=== PATIENT | female | born 1930 | race Caucasian/White ===

== ENCOUNTER → 2017-01-09 | Outpatient (CLI) | payer MEDICARE ==
[~2017-01-09] MED LIST: ALEVE 220MG220 MG PO; AMBIEN 10MG10 MG PO; AMLODIPINE5 MG PO; APAP/CODEINE PO; ASPIRIN E.C. 8181 MG PO; BENADRYL25 MG PO; CALCIUM + D 6001 TA1 PO; CALCIUM CITRATE1 TA5 PO; CATAFLAM50 MG PO; CENTRUM SILVER1 TA1 PO; CIPRO 500MG TA500 MG PO; CLARITIN 1010 MG/TAB PO; COQ(10)1010 MG PO; CORDARONE200 MG/TAB PO; COREG 25MG25 MG/TAB PO; CYCLOBENZAPRINE10 MG PO; DICLOFENAC50 MG PO; DIFLUCAN50 MG PO; FERROUS SU325 MG/TAB PO; FISH OIL SUPER1 SGL PO; FLAXSEED OIL1 CAP PO; FLONASEALLERGY NS; GLUCOSAMINE & C1 CA1 PO; IRON325 M2 PO; K-DUR 10 MEQ T10 MEQ PO; KLOR-CON 1010 MEQ PO; LASIX; LASIX 20MG TABL20 MG PO; LASIX 40MG TABL40 MG PO; LASIX40 MG PO; LISINOPRIL20 MG PO; LISINOPRIL40 MG PO; LOPRESSOR 550 MG/TAB PO; LOPRESSOR50 MG PO; MUCINEX 60600 MG/TA1 PO; MULTI VITAMINS1 TAB PO; NATURAL E400 IU PO; NEURONTIN100 MG/CAP PO; NORVASC 10MG10 MG PO; NORVASC 5MG5 MG/TAB PO; OMEGA-3 1000 MG1 CAP PO; OMNICEF 300MG300 MG PO; OSCAL 500MG/VI500 MG PO; POTASSIUM CL 220 MEQ PO; POTASSIUM20 MEQ PO; PREDNISONE10 MG PO; PREDNISONE20 MG PO; PRINIVIL20 MG PO; PROAIR HFA0.09 MG/AC IH; PROCARDIA XL90 MG PO; PYRIDIUM 100MG100 MG PO; RESTORIL 1515 MG/CAP PO; RT ADVAIR HFA 1112 G IH; ST. JOSEPH81 M2 PO; SYNTHROID0.05 MG/TA PO; TOPROL XL 50MG50 MG PO; TYLENOL 500MG500 MG PO; TYLENOL ARTHRI650 M1 PO; TYLENOL EXTRA500 M1 PO; ULTRAM 50MG TAB50 MG PO; VITAMIN B COMPL1 T16 PO; VITAMIN B121000 MCG PO; VITAMIN C500 MG PO; VITAMIN D32000 I1 PO; VITAMIN D3400 I1 PO; VITAMIN E100 I3 PO; XARELTO15 MG PO; ZEBETA10 MG PO; ZESTRIL 20MG TA20 MG PO; ZITHROMAX 250M250 MG PO; ZITHROMAX Z PA250 MG PO; ZOCOR 10MG10 MG PO; ZOCOR 20MG20 MG PO; ZOLPIDEM5 MG PO
== END ==
LOC: COL.RAD 09:22
DX: M48.54XA Collapsed vertebra, not elsewhere classified, thoracic region, initial encounter for fracture (principal)
CPT/HCPCS: A9503

== ENCOUNTER → 2017-01-19 | Outpatient (CLI) | payer MEDICARE | LOC: COL.RAD 14:53 | DX: M48.54XA Collapsed vertebra, not elsewhere classified, thoracic region, initial encounter for fracture (principal); X58.XXXA Exposure to other specified factors, initial encounter ==

== ENCOUNTER 2017-01-24 13:06 | Inpatient (IN) | payer MEDICARE ==
[~2017-01-24] VITALS: Ht 167.6 cm; Wt 79.6 kg
[~2017-01-24 13:06] MED LIST changes: -CLARITIN 1010 MG/TAB PO; -FLONASEALLERGY NS; -IRON325 M2 PO; -K-DUR 10 MEQ T10 MEQ PO; -KLOR-CON 1010 MEQ PO; -MUCINEX 60600 MG/TA1 PO; -MULTI VITAMINS1 TAB PO; -NEURONTIN100 MG/CAP PO; -OMNICEF 300MG300 MG PO; -PREDNISONE10 MG PO; -PREDNISONE20 MG PO; -PRINIVIL20 MG PO; -PROCARDIA XL90 MG PO; -RESTORIL 1515 MG/CAP PO; -RT ADVAIR HFA 1112 G IH; -SYNTHROID0.05 MG/TA PO; -ULTRAM 50MG TAB50 MG PO; -ZEBETA10 MG PO; -ZITHROMAX 250M250 MG PO; -ZITHROMAX Z PA250 MG PO
[2017-01-24 14:00] LABS: BASO % 0.2 % (0.0-2.0); EOS % 0.6 % (0-4.0); GRAN # 5.7 (1.4-6.5); GRAN % 86.6 % (42.2-75.2); HEMATOCRIT 37.3 % (37.0-47.0); HEMOGLOBIN 12.2 g/dl (12.5-16.0); LYMPH # 0.5 (1.2-3.4); LYMPH % 7.7 % (20.0-51.0); MEAN CELL VOLUME 97 fl (80.0-100.0); MEAN CORPUSCULAR HEMOGLOBIN 32 pg (27.0-31.0); MEAN CORPUSCULAR HGB CONC 33 g/dl (33.0-37.0); MEAN PLATELET VOLUME 11.5 fl (7.4-10.4); MONO # 0.3 (0.1-0.6); MONO % 4.6 % (1.7-9.3); PLATELET COUNT 84 K/mm3 (130-400); RED BLOOD COUNT 3.84 M/mm3 (4.10-5.30); REDCELL DISTRIBUTION WIDTH-CV 13.7 % (11.5-14.5); WHITE BLOOD COUNT 6.5 K/mm3 (4.8-10.8)
[2017-01-24] MEDS ORDERED: PRINIVIL20 MG PO (14:11)
[2017-01-24] MEDS ORDERED: COREG 25MG25 MG/TAB PO (14:12)
[2017-01-24 14:13] LABS: ADJUSTED CALCIUM 8.8 mg/dL (8.4-10.2); ALBUMIN 4.5 gm/dL (3.5-5.0); BILIRUBIN,TOTAL 1.5 mg/dL (0.0-1.0); CALCIUM 9.2 mg/dL (8.4-10.2); CREATININE, serum 1.05 mg/dL (0.52-1.25); POTASSIUM 4.5 mmol/L (3.4-5.0)
[2017-01-24] MEDS ORDERED: SYNTHROID0.05 MG/TA PO (14:15)
[2017-01-24 14:17] LABS: INFLUENZA B NEGATIVE
[2017-01-24] MEDS ORDERED: MULTI VITAMINS1 TAB PO (14:19)
[2017-01-24] MEDS ORDERED: RESTORIL 1515 MG/CAP PO (14:20)
[2017-01-24] MEDS ORDERED: ZITHROMAX Z PA250 MG PO (14:22)
[2017-01-24] MEDS ORDERED: PREDNISONE20 MG PO (14:22)
[2017-01-24] MEDS ORDERED: MUCINEX 60600 MG/TA1 PO (14:22)
[2017-01-24] MEDS ORDERED: OMNICEF 300MG300 MG PO (14:23)
[2017-01-24 14:49] LABS: ARTERIAL BLD GAS TCO2 CT 30.1; ARTERIAL BLOOD GAS BASE EXCESS 2.3 (-2-2); ARTERIAL BLOOD GAS HCO3 28.5 meq/L (22-26); ARTERIAL BLOOD GAS PHT 7.37 C (7.35-7.45); ARTERIAL BLOOD GAS pH 7.37 (7.35-7.45); OXYHEMOGLOBIN 93.2 %
[2017-01-24 14:50] LABS: ALLEN TEST YES; ALLENS TEST RESULT PASS; ATS? YES
[2017-01-24 15:02] LABS: TROPONIN-I 0.017 ng/mL (0.000-0.034)
[2017-01-24 17:17] VITALS: BP 178/75; PULSE 80; TEMP 98.2
[2017-01-24 20:20] VITALS: BP 163/72; PULSE 80; TEMP 97.8
[2017-01-24 23:33] VITALS: BP 114/50; PULSE 82; TEMP 98.4
[2017-01-25] VITALS (7 sets, daily range): BP systolic 120–177; BP diastolic 65–89; PULSE 79–91; TEMP 97–98.7
[2017-01-25 08:41] LABS: CREATININE, serum 0.91 mg/dL (0.52-1.25); POTASSIUM 4.4 mmol/L (3.4-5.0)
[2017-01-25 09:07] LABS: THYROID STIMULATING HORMONE 0.247 uIU/mL (0.465-4.680)
[2017-01-26 03:27] VITALS: BP 154/61; PULSE 79; TEMP 97.2
[2017-01-26 08:06] VITALS: BP 177/75; PULSE 80; TEMP 97
[2017-01-26 08:47] LABS: CALCIUM 8.7 mg/dL (8.4-10.2); CREATININE, serum 0.96 mg/dL (0.52-1.25); MAGNESIUM 2.2 mg/dL (1.6-2.3); POTASSIUM 4.4 mmol/L (3.4-5.0)
[2017-01-26 11:20] VITALS: BP 125/59; BP 173/78; PULSE 76; PULSE 79; TEMP 97.3; TEMP 98.8
[2017-01-26 14:57] VITALS: BP 149/54; PULSE 79; TEMP 98.7
[2017-01-26 19:38] VITALS: BP 182/65; PULSE 80; TEMP 97.8
[2017-01-26 21:47] VITALS: BP 195/83
[2017-01-27] VITALS (7 sets, daily range): BP systolic 124–180; BP diastolic 49–83; PULSE 78–91; TEMP 97.4–98.2
[2017-01-27 08:09] LABS: CALCIUM 8.7 mg/dL (8.4-10.2); CREATININE, serum 0.95 mg/dL (0.52-1.25); MAGNESIUM 2.2 mg/dL (1.6-2.3); POTASSIUM 4.1 mmol/L (3.4-5.0)
[2017-01-28] VITALS (8 sets, daily range): BP systolic 124–201; BP diastolic 56–89; PULSE 57–92; TEMP 97.3–98.7
[2017-01-28 07:52] LABS: MEAN CELL VOLUME 96 fl (80.0-100.0); MEAN CORPUSCULAR HGB CONC 33 g/dl (33.0-37.0); MEAN PLATELET VOLUME 11.1 fl (7.4-10.4); PLATELET COUNT 96 K/mm3 (130-400)
[2017-01-28 07:56] LABS: ANION GAP 11 mmol/L (7-16); BLOOD UREA NITROGEN 27 mg/dL (7-17); CALCIUM 8.5 mg/dL (8.4-10.2); CARBON DIOXIDE 29 mmol/L (22-30); CHLORIDE 93 mmol/L (98-107); CREATININE, serum 0.96 mg/dL (0.52-1.25); GLUCOSE 126 mg/dL (74-106); MAGNESIUM 2.3 mg/dL (1.6-2.3); POTASSIUM 3.8 mmol/L (3.4-5.0); SODIUM 133 mmol/L (137-145)
[2017-01-28 07:57] LABS: C-REACTIVE PROTEIN < 0.5 mg/dL (0.0-0.9)
[2017-01-28 08:00] LABS: ADD PATHOLOGY DIFF REVIEW NO; HEMATOCRIT 34.4 % (37.0-47.0); HEMOGLOBIN 11.5 g/dl (12.5-16.0); MEAN CORPUSCULAR HEMOGLOBIN 32 pg (27.0-31.0)
[2017-01-28 10:29] LABS: NEUTROPHILS 90 % (42.0-75.2); TOTAL CELLS COUNTED 100
[2017-01-28 10:37] LABS: ANISOCYTOSIS 1+
[2017-01-28 10:38] LABS: OVALOCYTES 1+; PLATELET ESTIMATE DECREASED (NORMAL)
[2017-01-29] VITALS (7 sets, daily range): BP systolic 131–152; BP diastolic 45–71; PULSE 77–80; TEMP 97.5–98.2
[2017-01-29 10:13] LABS: CALCIUM 8.6 mg/dL (8.4-10.2); CREATININE, serum 0.91 mg/dL (0.52-1.25); POTASSIUM 3.8 mmol/L (3.4-5.0)
[2017-01-29 11:56] LABS: ARTERIAL BLD GAS O2 SATURATION 93.2 % (92-100); ARTERIAL BLD GAS TCO2 CT 31.1; ARTERIAL BLOOD GAS BASE EXCESS 5.2 (-2-2); ARTERIAL BLOOD GAS HCO3 29.8 meq/L (22-26); ARTERIAL BLOOD GAS PHT 7.45 C (7.35-7.45); ARTERIAL BLOOD GAS PO2 66.1 mmHg (80-100); ARTERIAL BLOOD GAS PO2T 66.1 (80-100); ARTERIAL BLOOD GAS pH 7.45 (7.35-7.45); OXYHEMOGLOBIN 92.3 %
[2017-01-29 11:57] LABS: ATS? YES
[2017-01-30 03:25] VITALS: BP 150/602; BP 150/62; PULSE 80; TEMP 98.5
[2017-01-30] MEDS ORDERED: PROCARDIA XL90 MG PO (07:59)
[2017-01-30 08:00] VITALS: BP 130/61; PULSE 79; TEMP 97.4
[2017-01-30] MEDS ORDERED: ZEBETA10 MG PO (08:04)
[2017-01-30] MEDS ORDERED: FLONASEALLERGY NS (08:05)
[2017-01-30] MEDS ORDERED: ZITHROMAX 250M250 MG PO (08:29)
[2017-01-30] MEDS ORDERED: OMNICEF 300MG300 MG PO (08:29)
[2017-01-30] MEDS ORDERED: RT ADVAIR HFA 1112 G IH (08:30)
[2017-01-30] MEDS ORDERED: LASIX 20MG TABL20 MG PO (09:14)
[2017-01-30] MEDS ORDERED: KLOR-CON 1010 MEQ PO (09:15)
[2017-01-30] MEDS ORDERED: PREDNISONE10 MG PO (09:16)
[2017-01-30] MEDS ORDERED: PROAIR HFA0.09 MG/AC IH (10:24)
[2017-01-31 14:28] LABS: ANGIOTENSIN CONVERTING ENZYME <5 U/L (8 - 53)
[2017-02-13] MEDS ORDERED: ZEBETA10 MG PO (10:16)
[2017-02-13] MEDS ORDERED: IRON325 M2 PO (10:17)
[2017-02-13] MEDS ORDERED: LASIX 20MG TABL20 MG PO (10:20)
[2017-02-13] MEDS ORDERED: K-DUR 10 MEQ T10 MEQ PO (10:22)
[2017-02-13] MEDS ORDERED: PROCARDIA XL90 MG PO (10:23)
[2017-02-13] MEDS ORDERED: NEURONTIN100 MG/CAP PO (10:24)
[2017-02-13] MEDS ORDERED: CLARITIN 1010 MG/TAB PO (10:25)
[2017-02-13] MEDS ORDERED: ULTRAM 50MG TAB50 MG PO (10:25)
== END 2017-01-30 11:44 | disposition home or self-care (01) | DRG 191 ==
LOC: COL.ER 13:06 → MEDICAL 15:43
PROVIDERS: Emergency Medicine; Internal Medicine; Internal Medicine Pulmonary Disease
DX: J44.0 Chronic obstructive pulmonary disease with (acute) lower respiratory infection (principal); I50.42 Chronic combined systolic (congestive) and diastolic (congestive) heart failure; J20.9 Acute bronchitis, unspecified; J44.1 Chronic obstructive pulmonary disease with (acute) exacerbation; Z95.0 Presence of cardiac pacemaker; I11.0 Hypertensive heart disease with heart failure; I48.2 Chronic atrial fibrillation; D69.59 Other secondary thrombocytopenia; T45.515S Adverse effect of anticoagulants, sequela; G47.33 Obstructive sleep apnea (adult) (pediatric); I08.1 Rheumatic disorders of both mitral and tricuspid valves; I27.2 Other secondary pulmonary hypertension
CPT/HCPCS: 99232-AI; 99233-AI; 99239; J0360; J0456; J0696; J1940; J2060; J2930; J7050; J7512; Q9967

== ENCOUNTER → 2017-02-13 | Outpatient (CLI) | payer MEDICARE ==
[~2017-02-13] VITALS: Ht 167.6 cm; Wt 72.7 kg
[~2017-02-13] MED LIST changes: +CLARITIN 1010 MG/TAB PO; +FLONASEALLERGY NS; +IRON325 M2 PO; +K-DUR 10 MEQ T10 MEQ PO; +KLOR-CON 1010 MEQ PO; +MUCINEX 60600 MG/TA1 PO; +MULTI VITAMINS1 TAB PO; +NEURONTIN100 MG/CAP PO; +OMNICEF 300MG300 MG PO; +PREDNISONE10 MG PO; +PREDNISONE20 MG PO; +PRINIVIL20 MG PO; +PROCARDIA XL90 MG PO; +RESTORIL 1515 MG/CAP PO; +RT ADVAIR HFA 1112 G IH; +SYNTHROID0.05 MG/TA PO; +ULTRAM 50MG TAB50 MG PO; +ZEBETA10 MG PO; +ZITHROMAX 250M250 MG PO; +ZITHROMAX Z PA250 MG PO
[2017-02-13 09:47] VITALS: BP 147/73; PULSE 80; TEMP 97.6
[2017-02-13 10:42] VITALS: BP 153/87; PULSE 80
[2017-02-13 12:00] VITALS: BP 123/62; PULSE 81; TEMP 98
[2017-02-13 14:00] VITALS: BP 140/66; PULSE 81; TEMP 98.1
== END ==
LOC: COL.RAD 08:52
DX: S22.068G Other fracture of T7-T8 thoracic vertebra, subsequent encounter for fracture with delayed healing (principal); S22.078G Other fracture of T9-T10 vertebra, subsequent encounter for fracture with delayed healing; X58.XXXD Exposure to other specified factors, subsequent encounter
CPT/HCPCS: C1713; J2250; J3010; J7120

== ENCOUNTER → 2018-11-02 | Outpatient (CLI) | payer MEDICARE, BC ==
[2018-11-02 19:59] LABS: SYNOVIAL FLUID APPEARANCE CLOUDY; SYNOVIAL FLUID COLOR YELLOW
[2018-11-02 20:14] LABS: SYNOVIAL FL. MONONUCLEAR 64.1 % (0-75); SYNOVIAL FLUID RBC 5000 /mm3 (0-0); SYNOVIAL FLUID WBC 526 /mm3 (200-600)
== END ==
LOC: COL.LAB 18:25
PROVIDERS: Orthopaedic Surgery
DX: M25.512 Pain in left shoulder (principal)

== ENCOUNTER → 2019-04-13 | Outpatient (CLI) | payer MEDICARE, BC | LOC: COL.RAD 14:02 | DX: R10.2 Pelvic and perineal pain (principal); Z90.710 Acquired absence of both cervix and uterus ==

== ENCOUNTER → 2019-05-02 | Outpatient (CLI) | payer MEDICARE, BC ==
[~2019-05-02] MED LIST changes: +CARDIZEM CD 12120 MG PO; -FISH OIL SUPER1 SGL PO; +FLONASEALLERGY; +IRON PO; -IRON325 M2 PO; +TENORMIN100 MG PO; +TIROSINT50 MC1 PO; +[UNRECOGNIZED DRUG - OTHER]
== END ==
LOC: COL.RAD 20:30 → COL.PUL 05-03 13:00
DX: J90 Pleural effusion, not elsewhere classified (principal); J84.10 Pulmonary fibrosis, unspecified; I51.7 Cardiomegaly; I10 Essential (primary) hypertension; Z95.0 Presence of cardiac pacemaker
CPT/HCPCS: Q9967

== ENCOUNTER → 2019-05-02 | Outpatient (CLI) | payer MEDICARE, BC ==
[~2019-05-02] MED LIST changes: -CARDIZEM CD 12120 MG PO; +FISH OIL SUPER1 SGL PO; -FLONASEALLERGY; -IRON PO; +IRON325 M2 PO; -TENORMIN100 MG PO; -TIROSINT50 MC1 PO; -[UNRECOGNIZED DRUG - OTHER]
[2019-05-02 17:24] LABS: ANION GAP 10 mmol/L (7-16); BLOOD UREA NITROGEN 29 mg/dL (7-17); CALCIUM 9.2 mg/dL (8.4-10.2); CARBON DIOXIDE 30 mmol/L (22-30); CHLORIDE 93 mmol/L (98-107); CREATININE, serum 1.52 (0.52-1.25); GLUCOSE 115 mg/dL (74-106); POTASSIUM 4.8 mmol/L (3.4-5.0); SODIUM 133 mmol/L (137-145)
[2019-05-02 17:40] LABS: TROPONIN-I < 0.012 ng/mL (0.000-0.035)
[2019-05-02 17:43] LABS: ARTERIAL BLOOD GAS PCO2 36.5 mmHg (35-45); ARTERIAL BLOOD GAS pH 7.45 (7.35-7.45)
[2019-05-02 17:44] LABS: ARTERIAL BLD GAS O2 SATURATION 95.4 % (92-100); ARTERIAL BLD GAS TCO2 CT 25.6; ARTERIAL BLOOD GAS BASE EXCESS 0.7 (-2-2); ARTERIAL BLOOD GAS HCO3 24.5 meq/L (22-26); ARTERIAL BLOOD GAS PO2 80.6 mmHg (80-100)
== END ==
LOC: COL.LAB 16:26
PROVIDERS: Internal Medicine Interventional Cardiology
DX: I10 Essential (primary) hypertension (principal); R06.02 Shortness of breath

== ENCOUNTER 2020-12-20 04:53 | Inpatient (IN) | payer MEDICARE, BC ==
[~2020-12-20] VITALS: Ht 167.6 cm; Wt 76.8 kg
[~2020-12-20 04:53] MED LIST changes: +ALDACTONE 25MG25 M1 PO; +CARDIZEM CD 12120 MG PO; -FISH OIL SUPER1 SGL PO; +FLONASEALLERGY NAS; +IRON PO; -IRON325 M2 PO; +TENORMIN100 MG PO; +TIROSINT50 MC1 PO; +[UNRECOGNIZED DRUG - OTHER]
[2020-12-20 05:12] LABS: ALBUMIN 4.7 gm/dL (3.5-5.0); BILIRUBIN,TOTAL 2.9 mg/dL (0.0-1.0); CALCIUM 9.6 mg/dL (8.4-10.2); CREATININE, serum 1.41 (0.52-1.25); MAGNESIUM 2.1 mg/dL (1.6-2.3); POTASSIUM 5.3 mmol/L (3.4-5.0)
[2020-12-20 05:44] LABS: MEAN CELL VOLUME 103 fl (80.0-100.0); MEAN CORPUSCULAR HGB CONC 31 g/dl (33.0-37.0); MEAN PLATELET VOLUME 10.8 fl (7.4-10.4); PLATELET COUNT 73 K/mm3 (130-400); RED BLOOD COUNT 2.39 M/mm3 (4.10-5.30); REDCELL DISTRIBUTION WIDTH-CV 14.8 % (11.5-14.5)
[2020-12-20 05:45] LABS: HEMATOCRIT 24.6 % (37.0-47.0); HEMOGLOBIN 7.7 g/dl (12.5-16.0); MEAN CORPUSCULAR HEMOGLOBIN 32 pg (27.0-31.0)
[2020-12-20 05:49] LABS: INR 1.2 (0.8-3.0); PROTHROMBIN TIME 13.4 SECONDS (9.7-12.8)
[2020-12-20 06:07] LABS: HYPOCHROMIA 1+; LYMPHOCYTE 4 % (20.0-51.0); NEUTROPHILS 90 % (42.0-75.2); PLATELET ESTIMATE DECREASED (NORMAL)
[2020-12-20 06:08] LABS: OVALOCYTES 1+; POIKILOCYTOSIS 1+
[2020-12-20 07:15] LABS: COLLECTION METHOD CLEAN CATCH
--- NOTE | 2020-12-20 07:30 | NUR ---
PATIENT ADMITED INTO ROOM 345 FROM ER WITH LEFT HIP FX. PATIENT FELL AT HOME AND WAS DOWN OVER 12 HOURS BEFORE SHE COULD GET TO A PHONE. PATIENT DENIES PAIN AT REST. POSITIVE PEDAL PULSES TO BLE. TEDS TO RLE. SCD'S TO BLE. VERAS TO DD WITH MOD AMOUNTS OF CLEAR YELLOW URINE NOTED. IV FLUIDS INFUSING VIA PUMP INTO LEFT FORARM. NPO. SEE CONSULTS. VSS WITH TELE INPLACE. HEAD TO TOE ASSESSMENT COMPLETE. PATIENT IS VERY DEERING, NURSING STAFF HAD TO TALK VERY LOUD DIRECTLY IN HER EAR. ER STAFF REPORTED TRYING TO CALL PATIENT'S DAUGHTER WITH NO ANSWER. PATIENT ALSO TRIED TO CALL DAUGHTER WITH NO ANSWER. ORIENTED TO ROOM. CALL LIGHT AND PHONE IN REACH.
[2020-12-20 07:44] VITALS: BP 147/64; PULSE 90; TEMP 97.4
[2020-12-20 07:50] LABS: PH 5 (5-8); SQUAMOUS EPITHELIAL 0-2 /hpf; URINE APPEARANCE Clear; URINE BACTERIA None Seen /hpf; URINE BILIRUBIN Negative (NEGATIVE); URINE BLOOD Negative (NEGATIVE); URINE COLOR Yellow; URINE GLUCOSE Negative (NEGATIVE); URINE KETONE Negative (NEGATIVE); URINE LEUKOCYTE ESTERASE Negative (NEGATIVE); URINE NITRATE Negative (NEGATIVE); URINE PROTEIN(semi-quant) Negative (NEGATIVE); URINE RBC 0-2 /hpf; URINE UROBILINOGEN Negative (NEGATIVE)
[2020-12-20] MEDS ORDERED: TOPROL XL200 MG PO (09:56)
[2020-12-20] MEDS ORDERED: DEMADEX 20MG20 M1 PO (09:58)
--- NOTE | 2020-12-20 09:59 | NUR ---
Initial visit; Patient has significant hearing loss but did understand when Can Closing Machine Tender mentioned that she would keep her in Can Closing Machine Tender's prayers.
[2020-12-20] MEDS ORDERED: VITAMIND3 5000 PO (10:05)
[2020-12-20] MEDS ORDERED: TYLENOL 325MG325 MG PO (10:07)
[2020-12-20] MEDS ORDERED: EYE DROP ADVANC15 ML OU (10:08)
[2020-12-20] MEDS ORDERED: FISH OIL 1000MG1 CAP PO (10:08)
[2020-12-20 10:09] LABS: BILIRUBIN,DIRECT 0.2 mg/dL (0.0-0.4)
[2020-12-20 10:48] LABS: CALCIUM 9.2 mg/dL (8.4-10.2); CREATININE, serum 1.45 (0.52-1.25); POTASSIUM 5.2 mmol/L (3.4-5.0)
[2020-12-20 11:53] VITALS: BP 149/69; PULSE 82; TEMP 97.8
--- NOTE | 2020-12-20 15:02 | NUR ---
Structural Steel Shop Supervisor contacted the patient's daughter, Shaila #[phone] to complete intake. The patient lives alone in [place]. The patient has a cane and walker. She uses the cane in the community as needed. The patient is independent. The patient's PCP is Dr. Ruthie Stout and patient receives medications from [facility]. The patient does not have advanced directives in the EMR. However, Shaila states they are complete and she will will bring a copy to the hospital. The patient will likely be needing post acute rehab at discharge. SW discusse Medicare.gov's list of SNF in [facility]. The first choice is [facility] and second choice is [facility]. Referral send and facilites contacted regarding referral. YEIMY collaborated the above information with the patient's nurse.
--- NOTE | 2020-12-20 15:48 | NUR ---
Maeve from [facility] reports they can accept the patient for post acute rehab.
[2020-12-20 16:03] VITALS: BP 152/66; PULSE 80; TEMP 98
[2020-12-20 19:49] VITALS: BP 109/48; PULSE 82; TEMP 97.6
[2020-12-20 20:32] LABS: FOLATE (FOLIC ACID) 18.4 ng/mL (7.0-31.4)
--- NOTE | 2020-12-20 21:00 | NUR ---
Pt is alert and oriented x3, CHEVAK. Takes HS med without problem. Has IVF infusing to left forearm, no redness or swelling noted. Has santana catheter to BSD with yellow urine. Denies pain at this time to left hip. Dr Stewart was in to see pt earlier tonight.
[2020-12-21] VITALS (14 sets, daily range): BP systolic 101–140; BP diastolic 41–79; PULSE 73–83; TEMP 96.8–98.8
--- NOTE | 2020-12-21 01:05 | NUR ---
PT REPORTS PAIN TO LEFT HIP, MEDICATED WITH DILAUDID 0.25MG IVP AT THIS TIME.
[2020-12-21 07:15] LABS: BASO % 0.1 % (0.0-2.0); EOS # 0.1 (0.0-0.7); EOS % 1.4 % (0-4.0); GRAN # 5.9 (1.4-6.5); GRAN % 79.8 % (42.2-75.2); LYMPH # 0.7 (1.2-3.4); LYMPH % 9.1 % (20.0-51.0); MEAN CELL VOLUME 100 fl (80.0-100.0); MEAN CORPUSCULAR HGB CONC 33 g/dl (33.0-37.0); MEAN PLATELET VOLUME 11.2 fl (7.4-10.4); MONO # 0.7 (0.1-0.6); MONO % 9.2 % (1.7-9.3); PLATELET COUNT 74 K/mm3 (130-400); RED BLOOD COUNT 2.78 M/mm3 (4.10-5.30); REDCELL DISTRIBUTION WIDTH-CV 15.3 % (11.5-14.5)
[2020-12-21 07:23] LABS: HEMATOCRIT 27.9 % (37.0-47.0); HEMOGLOBIN 9.1 g/dl (12.5-16.0); MEAN CORPUSCULAR HEMOGLOBIN 33 pg (27.0-31.0)
[2020-12-21 07:34] LABS: ALBUMIN 3.2 gm/dL (3.5-5.0); BILIRUBIN,TOTAL 2.1 mg/dL (0.0-1.0); CALCIUM 8.3 mg/dL (8.4-10.2); CREATININE, serum 1.3 (0.52-1.25); POTASSIUM 4.6 mmol/L (3.4-5.0)
--- NOTE | 2020-12-21 09:34 | NUR ---
PT RESTING IN BED. NPO FOR SURGERY LATER TODAY. HOSPITALIST MEDICAL TEAM IN TO SEE PT. SHE HAS BEEN CLEARED FOR SURGERY WITH DR. VALDEZ. PT IS [place]. A/O X3, LEFT LEG WITH DISPLACED FX EXTERNALLY ROTATED AND SHORTEND. PAIN 310 AT THIS TIME.
[2020-12-21 12:19] LABS: HEMATOCRIT 28.9 % (37.0-47.0); HEMOGLOBIN 9.5 g/dl (12.5-16.0)
--- NOTE | 2020-12-21 13:51 | NUR ---
PT TO SURGERY PER BED WITH PETE AT THIS TIME.
--- NOTE | 2020-12-21 16:26 | NUR ---
Granulizing Machine Operator faxed clinical updates to [facility]. Mitch at [facility] advised they can also accept, however Mitch is aware they are second preference. YEIMY contacted Shaila to provide update about referrals. Shaila confirmed first preference is [facility].
--- NOTE | 2020-12-21 16:52 | NUR ---
PT TO ROOM 345 PER BED WITH REPORT FROM [facility] @2017. PT IS A/O X3 LUNGS CLEAR. BOWEL SOUNDS PRESENT. DRESSING OF GAUZE AND TEGADERM CDI. VSS, PT DENIES PAIN. BLOCKS AND GENERAL USED DURING PROCEEDURE. PT SLEEPING NOW.
--- NOTE | 2020-12-21 21:00 | NUR ---
Pt has been resting well. Asking for something to eat. Takes HS meds without problem and IV antibiotic infusing without difficulty to left forearm. Pudding and grahm crackers provided. Denies pain to left hip. Larry D/Sofia. Get patent.
--- NOTE | 2020-12-22 00:21 | NUR ---
Pt awake, still hungry. Pudding and brigitte crackers provided. Denies pain and has been doing ankle pumps in bed.
--- NOTE | 2020-12-22 02:58 | NUR ---
MEDICATED WITH OXYCODONE 5MG PO AND TYLENOL 650MG PO FOR PAIN TO LEFT HIP. REPOSITIONED WITH ASSIST.
[2020-12-22 04:07] VITALS: BP 111/45; PULSE 82; TEMP 98.4
[2020-12-22 06:59] LABS: HEMATOCRIT 27.5 % (37.0-47.0)
[2020-12-22 07:03] LABS: CALCIUM 8.2 mg/dL (8.4-10.2); CREATININE, serum 1.16 (0.52-1.25); POTASSIUM 4.8 mmol/L (3.4-5.0)
[2020-12-22 07:43] LABS: EOS % 0.2 % (0-4.0); GRAN # 5.9 (1.4-6.5); GRAN % 88.4 % (42.2-75.2); HEMATOCRIT 27.3 % (37.0-47.0); LYMPH # 0.3 (1.2-3.4); MEAN CELL VOLUME 100 fl (80.0-100.0); MEAN CORPUSCULAR HEMOGLOBIN 33 pg (27.0-31.0); MEAN CORPUSCULAR HGB CONC 33 g/dl (33.0-37.0); MEAN PLATELET VOLUME 12.2 fl (7.4-10.4); MONO # 0.4 (0.1-0.6); MONO % 6.1 % (1.7-9.3); PLATELET COUNT 79 K/mm3 (130-400); RED BLOOD COUNT 2.73 M/mm3 (4.10-5.30); REDCELL DISTRIBUTION WIDTH-CV 14.9 % (11.5-14.5)
[2020-12-22 08:53] VITALS: BP 107/47; PULSE 84; TEMP 97.8
--- NOTE | 2020-12-22 09:54 | NUR ---
PT RESTING IN BED. ATE BREAKFAST, AM MEDS GIVEN. DR. VALDEZ IN TO SEE PT. PT DENIES PAIN AT THIS TIME. DRESSING TO RIGHT HIP CDI. BIENVENIDO VERAS AFTER WORKING WITH THERAPY. PT EATING AND DRINKING WITH NO N/V. IVF DISCONTINUED.
[2020-12-22 11:48] VITALS: BP 126/81; PULSE 81; TEMP 97.7
--- NOTE | 2020-12-22 15:16 | NUR ---
Sent updates to ML and [facility], PT recommends SNF
--- NOTE | 2020-12-22 15:38 | NUR ---
PHYSICAL THERPAY REPORTS THAT PATIENT IS NOT SAFE TO AMBULATE OR TRANSFER AT THIS TIME. VERAS CATHETER TO DD. WILL BIENVENIDO TOMSHADYRRJOSE.
[2020-12-22 15:53] VITALS: BP 112/46; PULSE 83; TEMP 97.7
[2020-12-22 19:47] VITALS: BP 114/73; PULSE 79; TEMP 97.5
--- NOTE | 2020-12-22 21:46 | NUR ---
MEDICATED WITH HS MEDS INCLUDING MELATONIN AND OXYCODONE FOR LEFT SHOULDER AND HIP PAIN. VERAS TO BSD WITH YELLOW URINE. SL TO LEFT FOREARM, NO REDNESS OR SWELLING. HAS DRSG'S X3 TO LEFT HIP, ICE PACK IN PLACE. REPOSITIONED TO RIGHT SIDE. OXYGEN ON AT 2L/NC.
[2020-12-23] VITALS (7 sets, daily range): BP systolic 109–148; BP diastolic 55–75; PULSE 79–83; TEMP 97.3–97.9
[2020-12-23 06:24] LABS: BASO % 0.1 % (0.0-2.0); EOS # 0.1 (0.0-0.7); EOS % 1.3 % (0-4.0); GRAN # 6.2 (1.4-6.5); GRAN % 79.4 % (42.2-75.2); LYMPH # 0.8 (1.2-3.4); LYMPH % 9.8 % (20.0-51.0); MEAN CELL VOLUME 100 fl (80.0-100.0); MEAN CORPUSCULAR HGB CONC 33 g/dl (33.0-37.0); MEAN PLATELET VOLUME 11.4 fl (7.4-10.4); MONO # 0.7 (0.1-0.6); MONO % 8.5 % (1.7-9.3); PLATELET COUNT 100 K/mm3 (130-400); RED BLOOD COUNT 2.73 M/mm3 (4.10-5.30)
[2020-12-23 06:28] LABS: HEMATOCRIT 27.3 % (37.0-47.0); HEMOGLOBIN 8.9 g/dl (12.5-16.0); MEAN CORPUSCULAR HEMOGLOBIN 33 pg (27.0-31.0)
[2020-12-23 06:37] LABS: CALCIUM 8.1 mg/dL (8.4-10.2); CREATININE, serum 1.63 (0.52-1.25); POTASSIUM 5.1 mmol/L (3.4-5.0)
--- NOTE | 2020-12-23 10:07 | NUR ---
PT UP TO RECLINER WITH MAX ASSIST X2. TTWB TO LEFT SIDE. ATE 100% OF BREAKFAST. DRESSING TO LEFT HIP CDI WITH GAUZE AND TEGADERM. PT IS LA JOLLA. O2 SATS MAINTAINED WITH 2L PNC.
--- NOTE | 2020-12-23 10:24 | NUR ---
YEIMY sent record updates to [facility] and [facility]. There are no new needs at this time. Social work will continue to follow.
--- NOTE | 2020-12-23 11:43 | NUR ---
PT REPORTING BLOOD IN URINE. PT VERBALIZED POSITIVE HX OF BLEEDING WITH PREVIOUS ASA USE. NOTIFIED HE WILL FOLLOW UP.
--- NOTE | 2020-12-23 20:00 | NUR ---
PT IN BED, SLIGHTLY DISORIENTED TO PLACE AND TIME. VERAS IS RHINA, IVF INFUSING TO LEFT FOREARM WITHOUT REDNESS OR SWELLING. HAS DRSGS X3 TO LEFT HIP.
--- NOTE | 2020-12-23 22:03 | NUR ---
PT TAKES HS MEDS. REPOSITIONED IN BED. REPORTS PAIN TO LEFT SHOULDER AND LEFT HIP. MEDICATED WITH OXYCODONE AND TYLENOL AT THIS TIME.
[2020-12-24 04:42] VITALS: BP 150/57; PULSE 80; TEMP 97.6
--- NOTE | 2020-12-24 06:15 | NUR ---
TAKES AM MED WITH GATORADE. REPOSITIONED IN BED.
[2020-12-24 07:05] LABS: BASO % 0.2 % (0.0-2.0); EOS # 0.2 (0.0-0.7); EOS % 3.2 % (0-4.0); GRAN # 4.8 (1.4-6.5); GRAN % 73.5 % (42.2-75.2); LYMPH # 0.8 (1.2-3.4); LYMPH % 11.8 % (20.0-51.0); MEAN CELL VOLUME 102 fl (80.0-100.0); MEAN CORPUSCULAR HGB CONC 33 g/dl (33.0-37.0); MEAN PLATELET VOLUME 11.1 fl (7.4-10.4); MONO # 0.7 (0.1-0.6); MONO % 10.4 % (1.7-9.3); PLATELET COUNT 105 K/mm3 (130-400); RED BLOOD COUNT 2.87 M/mm3 (4.10-5.30); REDCELL DISTRIBUTION WIDTH-CV 15.3 % (11.5-14.5)
[2020-12-24 07:08] LABS: CALCIUM 8.5 mg/dL (8.4-10.2); CREATININE, serum 1.45 (0.52-1.25); POTASSIUM 5.4 mmol/L (3.4-5.0)
[2020-12-24 07:26] LABS: HEMATOCRIT 29.4 % (37.0-47.0); HEMOGLOBIN 9.6 g/dl (12.5-16.0); MEAN CORPUSCULAR HEMOGLOBIN 33 pg (27.0-31.0)
[2020-12-24 07:33] VITALS: BP 160/86; PULSE 80; TEMP 98.7
--- NOTE | 2020-12-24 08:00 | NUR ---
Patient in bed resting. Alert and oriented. Assessment complete. Denies pain at this time. Justus hose and SCDs to BLE. Edema noted to left hip. Gauze dressing to left hip with minimal drainage noted. Denies needs at this time.
[2020-12-24 11:25] VITALS: BP 126/69; PULSE 79; TEMP 98.3
--- NOTE | 2020-12-24 14:40 | NUR ---
Sheep Farm Manager faxed updates to [facility] and [facility]. Patient not ready for discharge today per CHARLY Rico. YEIMY contacted Maeve with this update. YEIMY also received copy of patient's DPOA-HC documents. YEIMY placed copy on chart.
[2020-12-24 15:59] VITALS: BP 118/55; PULSE 80; TEMP 98.1
[2020-12-24 16:11] LABS: CALCIUM 8.7 mg/dL (8.4-10.2); CREATININE, serum 1.4 (0.52-1.25); POTASSIUM 5.7 mmol/L (3.4-5.0)
--- NOTE | 2020-12-24 18:45 | NUR ---
Patient has done well throughout the day. Educated patient on free water restriction. Fluids continue infusing per orders. Denies pain or needs at this time. Will report off to senior sales operations analyst.
[2020-12-24 20:31] LABS: CALCIUM 8.8 mg/dL (8.4-10.2); CREATININE, serum 1.35 (0.52-1.25); POTASSIUM 4.9 mmol/L (3.4-5.0)
[2020-12-24 20:33] VITALS: BP 117/63; PULSE 80; TEMP 98.6
[2020-12-25] VITALS (7 sets, daily range): BP systolic 97–154; BP diastolic 42–73; PULSE 78–81; TEMP 97.2–98.6
--- NOTE | 2020-12-25 02:25 | NUR ---
PT YELLING OUT, HAVING "SPASMS" IN HER LEFT UPPER LEG. MEDICATED WITH IV DILAUDID 0.25MG IVP AND ICE PACK APPLIED TO LEFT LEG.
[2020-12-25 07:47] LABS: BASO % 0.3 % (0.0-2.0); EOS # 0.2 (0.0-0.7); EOS % 2.8 % (0-4.0); GRAN # 4.8 (1.4-6.5); GRAN % 71.9 % (42.2-75.2); LYMPH % 14.2 % (20.0-51.0); MEAN CELL VOLUME 104 fl (80.0-100.0); MEAN CORPUSCULAR HGB CONC 32 g/dl (33.0-37.0); MONO # 0.6 (0.1-0.6); MONO % 9.6 % (1.7-9.3); PLATELET COUNT 136 K/mm3 (130-400); RED BLOOD COUNT 2.76 M/mm3 (4.10-5.30); REDCELL DISTRIBUTION WIDTH-CV 15.6 % (11.5-14.5)
[2020-12-25 07:52] LABS: CALCIUM 8.4 mg/dL (8.4-10.2); CREATININE, serum 1.36 (0.52-1.25); HEMATOCRIT 28.6 % (37.0-47.0); HEMOGLOBIN 9.2 g/dl (12.5-16.0); MEAN CORPUSCULAR HEMOGLOBIN 33 pg (27.0-31.0); POTASSIUM 5.2 mmol/L (3.4-5.0)
--- NOTE | 2020-12-25 08:30 | NUR ---
Patient sitting up in bed eating breakfast. Alert and oriented x 3. Assessment complete. Dressing to left hip is CDI. Fluids infusing at this time. Denies further needs at this time.
[2020-12-25] MEDS ORDERED: FERROUS SU325 MG/TAB PO (08:31)
[2020-12-25] MEDS ORDERED: VITAMIN C500 MG PO (08:31)
[2020-12-25] MEDS ORDERED: SENOKOT S 50 MG1 TAB PO (08:32)
--- NOTE | 2020-12-25 10:45 | NUR ---
Patient up to chair with physical therapy
--- NOTE | 2020-12-25 12:11 | NUR ---
First visit from the wet wheeler. No needs right now.
--- NOTE | 2020-12-25 12:17 | NUR ---
Patient up to comode. x2 assist. Denies needs at this time.
--- NOTE | 2020-12-25 15:39 | NUR ---
Certified Adaptive Physical Educator collaborated with CHARLY Garnett who advised patient is not ready for discharge today, but possibly tomorrow. SW contacted Maeve and advised patient may DC tomorrow.
--- NOTE | 2020-12-25 19:11 | NUR ---
Patient has done well throughout the day. Up to recliner throughout the day. Deutsch discontinued this afternoon at approximately 1800. Patient has not voided yet. Denies pain at this time. Denies further needs at this time. Reported off to lacquer machine feeder. Provided patient with ice cream and pudding this afternoon. Denies needs at this time. Reported off to lacquer machine feeder.
--- NOTE | 2020-12-25 20:00 | NUR ---
Pt doing well at this time. She is resting in bed with no pain complaints. She states that she was not fond of the dinner that was served. Gave her some pudding at this time. Left hip dressing does have some drainage on it. No other needs at this time, will continue to monitor.
--- NOTE | 2020-12-25 23:47 | NUR ---
Pt up to the commode x 2 assist. She did well with minimal complaints. Pt voided with no issues, pain medication given. Call light within reach, will continue to monitor
[2020-12-26 03:52] VITALS: BP 125/53; PULSE 80; TEMP 97.9
--- NOTE | 2020-12-26 07:00 | NUR ---
Pt slept most of the night with no needs or complaints. She did continue to get up to the bedside commode. Top dressing to the left hip changed
[2020-12-26 07:27] VITALS: BP 130/52; PULSE 81; TEMP 97.6
[2020-12-26 07:48] LABS: MEAN CELL VOLUME 104 fl (80.0-100.0); MEAN CORPUSCULAR HGB CONC 32 g/dl (33.0-37.0); MEAN PLATELET VOLUME 10.6 fl (7.4-10.4); PLATELET COUNT 159 K/mm3 (130-400); RED BLOOD COUNT 2.84 M/mm3 (4.10-5.30); REDCELL DISTRIBUTION WIDTH-CV 15.8 % (11.5-14.5)
[2020-12-26 07:51] LABS: HEMATOCRIT 29.6 % (37.0-47.0); HEMOGLOBIN 9.4 g/dl (12.5-16.0); MEAN CORPUSCULAR HEMOGLOBIN 33 pg (27.0-31.0)
[2020-12-26 08:03] LABS: ALBUMIN 3.6 gm/dL (3.5-5.0); BILIRUBIN,TOTAL 2.4 mg/dL (0.0-1.0); CALCIUM 8.6 mg/dL (8.4-10.2); CREATININE, serum 1.18 (0.52-1.25); MAGNESIUM 2.3 mg/dL (1.6-2.3); TOTAL PROTEIN 6.5 gm/dL (6.4-8.2)
[2020-12-26] MEDS ORDERED: ASPI325T6 PO (09:05)
[2020-12-26] MEDS ORDERED: NEURONTIN100 MG/CAP PO (09:06)
[2020-12-26] MEDS ORDERED: DULCOLAX S10 MG/SUPP RC (09:07)
[2020-12-26] MEDS ORDERED: OS-CAL 500 + D1 TAB PO (09:07)
[2020-12-26] MEDS ORDERED: MELATONIN3 M1 PO (09:07)
[2020-12-26] MEDS ORDERED: ROXICODONE 55 MG/TAB PO (09:09)
--- NOTE | 2020-12-26 11:00 | NUR ---
Patient alert and oriented, answers questions appropriately. See assessment. Left hip with dressing CDI, new dressing placed. Incision with edges well approximated, no redness or drainage noted. FWB. Pulses palpable to LLE, no numbness or tingling noted. No c/o at this time.
[2020-12-26 11:04] VITALS: BP 130/56; PULSE 79; TEMP 97.5
[2020-12-26 13:08] VITALS: BP 130/56; PULSE 79; TEMP 97.5
--- NOTE | 2020-12-26 13:23 | NUR ---
Patient transfered to [facility] via wheelchair/transporation staff at 1320. Report called to Kera, paperwork sent.
--- NOTE | 2020-12-26 13:29 | NUR ---
Hospitality Specialist attended clinical rounding and patient is ready for discharge today. YEIMY contacted Maeve at [facility] and faxed clinical updates. Maeve advised they are good to accept today and transport time was set for 1300. YEIMY provided transport time to [facility]. YEIMY contacted patient's daughter, Shaila to update on discharge time. YEIMY then met with patient to provide discharge time. Patient is hard of hearing and questioned if the clock was right in her room. YEIMY faxed discharge orders and negative COVID results to Maeve at [facility]. YEIMY contacted Mitch to notify him of patient discharge to first preference. No additional needs at this time.
== END 2020-12-26 13:20 | DRG 480 ==
LOC: COL.ER 04:53 → SURG 05:31
PROVIDERS: Family Medicine; Nurse Anesthetist, Certified Registered; Orthopaedic Surgery; Physician Assistant; Student in an Organized Health Care Education/Training Program; ADMIT Hospitalist
PROC: 0QS736Z Reposition Left Upper Femur with Intramedullary Internal Fixation Device, Percutaneous Approach (ICD-10-PCS; principal; 2020-12-20)
DX: S72.142A Displaced intertrochanteric fracture of left femur, initial encounter for closed fracture (principal); J96.01 Acute respiratory failure with hypoxia; N17.9 Acute kidney failure, unspecified; E22.2 Syndrome of inappropriate secretion of antidiuretic hormone; I50.32 Chronic diastolic (congestive) heart failure; I13.0 Hypertensive heart and chronic kidney disease with heart failure and stage 1 through stage 4 chronic kidney disease, or unspecified chronic kidney disease; R31.9 Hematuria, unspecified; N18.9 Chronic kidney disease, unspecified; Z66 Do not resuscitate; E87.5 Hyperkalemia; D53.9 Nutritional anemia, unspecified; R73.9 Hyperglycemia, unspecified; D69.6 Thrombocytopenia, unspecified; E80.6 Other disorders of bilirubin metabolism; I27.20 Pulmonary hypertension, unspecified; I48.91 Unspecified atrial fibrillation; I36.1 Nonrheumatic tricuspid (valve) insufficiency; E78.5 Hyperlipidemia, unspecified; I35.0 Nonrheumatic aortic (valve) stenosis; E03.9 Hypothyroidism, unspecified; G47.00 Insomnia, unspecified; G47.33 Obstructive sleep apnea (adult) (pediatric); Z20.822 Contact with and (suspected) exposure to COVID-19; Z95.0 Presence of cardiac pacemaker; Z90.710 Acquired absence of both cervix and uterus; Z88.2 Allergy status to sulfonamides; Z88.1 Allergy status to other antibiotic agents; W01.0XXA Fall on same level from slipping, tripping and stumbling without subsequent striking against object, initial encounter
CPT/HCPCS: 99223-AI; 99232-AI; 99233-AI; 99239; A9284; C1713; J0690; J1170; J1815; J2250; J2405; J2704; J2795; J3010; J7030

== ENCOUNTER 2021-01-16 13:21 | Emergency (ER) | payer MEDICARE, BC ==
[~2021-01-16 13:21] MED LIST changes: +ASPI325T6 PO; +DEMADEX 20MG20 M1 PO; +DULCOLAX S10 MG/SUPP RC; +EYE DROP ADVANC15 ML OU; +FISH OIL 1000MG1 CAP PO; +MELATONIN3 M1 PO; +OS-CAL 500 + D1 TAB PO; +ROXICODONE 55 MG/TAB PO; +SENOKOT S 50 MG1 TAB PO; +TOPROL XL200 MG PO; +TYLENOL 325MG325 MG PO; +VITAMIND3 5000 PO
[2021-01-16 13:29] VITALS: TEMP 97.6
[2021-01-16 14:45] LABS: BASO % 0.3 % (0.0-2.0); EOS # 0.2 (0.0-0.7); GRAN # 5.8 (1.4-6.5); GRAN % 78.4 % (42.2-75.2); HEMOGLOBIN 10.2 g/dl (12.5-16.0); LYMPH # 0.7 (1.2-3.4); LYMPH % 9.3 % (20.0-51.0); MEAN CELL VOLUME 101 fl (80.0-100.0); MEAN CORPUSCULAR HEMOGLOBIN 33 pg (27.0-31.0); MEAN CORPUSCULAR HGB CONC 32 g/dl (33.0-37.0); MEAN PLATELET VOLUME 9.9 fl (7.4-10.4); MONO # 0.7 (0.1-0.6); MONO % 9.5 % (1.7-9.3); PLATELET COUNT 168 K/mm3 (130-400); RED BLOOD COUNT 3.12 M/mm3 (4.10-5.30); REDCELL DISTRIBUTION WIDTH-CV 17.7 % (11.5-14.5)
[2021-01-16 14:47] LABS: HEMATOCRIT 31.6 % (37.0-47.0)
[2021-01-16 14:58] LABS: ALBUMIN 3.2 gm/dL (3.5-5.0); BILIRUBIN,TOTAL 1.4 mg/dL (0.0-1.0); CALCIUM 8.5 mg/dL (8.4-10.2); CREATININE, serum 1.45 (0.52-1.25); POTASSIUM 4.3 mmol/L (3.4-5.0); TOTAL PROTEIN 6.3 gm/dL (6.4-8.2)
[2021-01-16 17:24] LABS: INR 1.3 (0.8-3.0); PROTHROMBIN TIME 14.4 SECONDS (9.7-12.8)
[2021-01-16 17:26] LABS: PARTIAL THROMBOPLASTIN TIME 41.4 SECONDS (26.0-37.0)
[2021-01-16 19:30] VITALS: BP 144/63; PULSE 82
== END 2021-01-16 19:30 | disposition short-term general hospital (02) ==
LOC: COL.ER 13:21
PROVIDERS: Emergency Medicine
DX: S72.002A Fracture of unspecified part of neck of left femur, initial encounter for closed fracture (principal); N17.9 Acute kidney failure, unspecified; Z88.1 Allergy status to other antibiotic agents; Z88.2 Allergy status to sulfonamides; Z79.82 Long term (current) use of aspirin; X50.9XXA Other and unspecified overexertion or strenuous movements or postures, initial encounter
CPT/HCPCS: J2270; J2405; J7040

== ENCOUNTER 2021-02-07 18:57 | Inpatient (IN) | payer MEDICARE, BC ==
[~2021-02-07] VITALS: Ht 167.6 cm; Wt 84.0 kg
[2021-02-07 19:30] VITALS: BP 140/61; PULSE 80; TEMP 97.4
--- NOTE | 2021-02-07 20:30 | NUR ---
Direct admit from [facility]-- Dr Barth here seeing patient- DX CHF, pt SOB, o2 at 3L/nc with sats 97%- has generalized edema- especially pitting to lower legs and trunk.
[2021-02-07 20:47] LABS: BASO % 0.5 % (0.0-2.0); EOS # 0.3 (0.0-0.7); EOS % 4.6 % (0-4.0); GRAN # 3.9 (1.4-6.5); GRAN % 66.2 % (42.2-75.2); LYMPH % 17.5 % (20.0-51.0); MEAN CELL VOLUME 104 fl (80.0-100.0); MEAN CORPUSCULAR HGB CONC 31 g/dl (33.0-37.0); MEAN PLATELET VOLUME 9.8 fl (7.4-10.4); MONO # 0.6 (0.1-0.6); MONO % 10.5 % (1.7-9.3); PLATELET COUNT 161 K/mm3 (130-400); RED BLOOD COUNT 2.92 M/mm3 (4.10-5.30)
[2021-02-07 20:50] LABS: HEMATOCRIT 30.3 % (37.0-47.0); HEMOGLOBIN 9.3 g/dl (12.5-16.0); MEAN CORPUSCULAR HEMOGLOBIN 32 pg (27.0-31.0)
[2021-02-07 20:54] LABS: ANION GAP 5 mmol/L (7-16); BLOOD UREA NITROGEN 27 mg/dL (7-17); CALCIUM 8.1 mg/dL (8.4-10.2); CARBON DIOXIDE 32 mmol/L (22-30); CHLORIDE 93 mmol/L (98-107); CREATININE, serum 1.16 (0.52-1.25); GLUCOSE 110 mg/dL (74-106); MAGNESIUM 2.3 mg/dL (1.6-2.3); POTASSIUM 4.2 mmol/L (3.4-5.0); SODIUM 130 mmol/L (137-145)
[2021-02-07 20:56] LABS: INR 1.2 (0.8-3.0); PROTHROMBIN TIME 13.6 SECONDS (9.7-12.8)
[2021-02-07 21:10] LABS: TROPONIN-I < 0.012 ng/mL (0.000-0.035)
[2021-02-07] MEDS ORDERED: TYLENOL SU650 MG/SUP RC (21:35)
[2021-02-07] MEDS ORDERED: ASPIRIN 81M81 MG/TA2 PO (21:36)
[2021-02-07] MEDS ORDERED: DOXYCYCLINE HY100 MG PO (21:39)
[2021-02-07] MEDS ORDERED: NEURONTIN300 MG/CAP PO (21:40)
[2021-02-07] MEDS ORDERED: LASIX 40MG TABL40 MG PO (21:41)
[2021-02-07] MEDS ORDERED: MYLANTA 150 ML150 M1 PO (21:43)
[2021-02-07] MEDS ORDERED: ROXICODONE 55 MG/TAB PO (21:44)
[2021-02-07] MEDS ORDERED: ALDACTONE 25MG25 M1 PO (21:45)
[2021-02-07] MEDS ORDERED: DEMADEX 20MG20 M1 PO (22:05)
[2021-02-07] MEDS ORDERED: NYSTATIN POWDER15 GM TOP (22:06)
[2021-02-07] MEDS ORDERED: MILK OF MA400 MG/52 (22:08)
--- NOTE | 2021-02-07 22:30 | NUR ---
Deutsch placed per orders, clear yellow urine at this time-- Has Lasix drip IV at 10mg/hr=10cc/hr to INT to right FA. SCD,s on. O2 at 3L/nc, Has bilateral hearing aides, glasses and upper/lower dentures at bedside. Pleasant, alert/oriented- LARSEN BAY. This nurse did call pts daughter Jocelin to inform of orders/condition- Tele on. CXR and EKG were completed.
--- NOTE | 2021-02-07 22:45 | NUR ---
Has dressing to left hip incision, clean dry and intact.
[2021-02-07] MEDS ORDERED: DULCOLAX S10 MG/SUPP RC (23:39)
[2021-02-07] MEDS ORDERED: DEBROX OT (23:40)
[2021-02-07] MEDS ORDERED: IMODIUM 2MG CAPS2 MG PO (23:42)
[2021-02-07 23:44] VITALS: BP 125/52; PULSE 82; TEMP 98
[2021-02-07] MEDS ORDERED: GENTEAL TEARS 015 M1 OP (23:46)
[2021-02-07] MEDS ORDERED: SALINE 45 ML45 ML NS (23:47)
[2021-02-07] MEDS ORDERED: SENOKOT S 50 MG1 TAB PO (23:48)
[2021-02-08] VITALS (7 sets, daily range): BP systolic 117–174; BP diastolic 49–115; PULSE 64–84; TEMP 97.6–98.8
--- NOTE | 2021-02-08 05:26 | NUR ---
Quiet night-- has been sleeping most of the night since about MN- vitals very stable throughout the night- Tele on , HR 80,s. Deutsch draining pale yellow urine-good output since Lasix drip started , had 1350cc out of urine this shift-- Lasix IV drip continues at 10mg/hr=10cc/hr. o2 at 3L/nc at 98% sats.
--- NOTE | 2021-02-08 06:24 | NUR ---
Another 550cc from White for a total of 1900cc out since admission.
--- NOTE | 2021-02-08 07:00 | NUR ---
Report received from JOSIE Valverde. Pt in bed resting with eyes closed, will continue to monitor.
[2021-02-08 08:04] LABS: CREATININE, serum 1.02 (0.52-1.25); POTASSIUM 3.9 mmol/L (3.4-5.0)
--- NOTE | 2021-02-08 10:58 | NUR ---
Assessment charted. Pt is alert and oriented, hard of hearing. Eating breakfast well. Lasix gtt to RW. Urine is yellwo and clear draining well. L hip is red and swollen but dressing is CDI. Feet has scabbing to top of feet and L heel has scabbing. Discussed with ENOCH Henry. Will continue to monitor.
--- NOTE | 2021-02-08 15:05 | NUR ---
YEIMY contacted the patient's daughter/DPOA-HC, Shaila (ph#[phone]), to discuss discharge plan. The patient has been residing at [facility] for a skilled stay after hip surgery. Her PCP is Dr. Kit Stout and her DPOA-HC is in EMR. Shaila reports that the plan is for the patient to return back to [facility] for a skilled stay upon discharge. YEIMY contacted and updates to Maeve at [facility]. YEIMY to continue to follow.
--- NOTE | 2021-02-08 17:49 | NUR ---
Pt resting in bed, c/o heel burning today, removed SCDs and socks and found no sign of breakdown on L heel. Lasix gtt continues to have good urine outpot. PRN pain med given per request. Denies needs, will give bedside shift report to nightshift nruse who will resume care.
--- NOTE | 2021-02-08 20:20 | NUR ---
Patient assessed at this time. Alert and oriented. Drowsy but awakens easily. Denies having pain and discomfort at this time. Peripheral IV to right wrist. Site without redness, warmth, swelling, and pain. Denies having SOB and dsypnea. LS CTA in upper lobes, diminished in lower. Respirations even and unlabored. HRR. Telemetry in place. Capillary refill less than 3 seconds. Non-tenting skin turgor. BSAx4. Abdomen soft and non-tender. Patient has 3+ edema BLE. Continues on lasix drip per orders. No weeping noted at this time. Indwelling santana catheter patent with clear yellow urine. Redness to bottom. Excoration to groin area. Scabs to bilateral feet. Left hip surgical site with redness and warmth. Given ABX for cellulitis per orders. Bruising to right buttock/hip area. Red bruising to BUE. Voices no questions, needs, or concerns at this time. Resting in bed with call light within reach.
[2021-02-09 05:25] VITALS: BP 128/56; PULSE 83; TEMP 97.7
--- NOTE | 2021-02-09 05:43 | NUR ---
Patient has been resting in bed with call light within reach. Denies having pain and discomfort at this time. Repositioned in bed during the night. Continues to have generalized edema and 3+ to BLE. Continues on Lasix drip with good urine output via indwelling santana catheter. Voices no questions, needs, or concerns at this time. Resting in bed with call light within reach. High fall risk precautions remain in place.
[2021-02-09 07:52] VITALS: BP 125/48; PULSE 80; TEMP 97.5
[2021-02-09 07:58] LABS: CALCIUM 7.9 mg/dL (8.4-10.2); CREATININE, serum 0.95 (0.52-1.25); POTASSIUM 3.7 mmol/L (3.4-5.0)
--- NOTE | 2021-02-09 10:39 | NUR ---
Cardiology rounded. Lasix drip stopped per orders. Patient has been up to the commode, BMx2. Pericare provided. She did well with breakfast. No Nausea. Lunch ordered, I reviewed strict I&O with patient. Left hip incision steristrips intact, prior dressing removed. Patient having some complaints of pain, tylenol per EMAR. Left shoudler pain. Edema still present, but improving. Heel protectors on. extremities elevated. Will closely monitor.
--- NOTE | 2021-02-09 10:50 | NUR ---
First visit from the anesthesiology resident. No needs right now.
--- NOTE | 2021-02-09 11:22 | NUR ---
Patient will not discharge home today 02/[address] Robison due to medication changes. MD reports that patient may discharge 02/10.
[2021-02-09 11:26] VITALS: BP 132/45; PULSE 81; TEMP 98
--- NOTE | 2021-02-09 14:45 | NUR ---
Patient repositioned in bed. Reports increased hip pain, not interest in tylenol. One tab roxicodone per request. She is wanting to nap this afternoon.
[2021-02-09 15:20] VITALS: BP 128/44; PULSE 80; TEMP 98.3
--- NOTE | 2021-02-09 16:00 | NUR ---
Pt c/o pain to coccyx area, stating "I don't feel clean." Pt checked and changed, no BM. Moisture barrier cream applied to sacral/coccyx area and redness noted, aquacell dressing placed. Pt positioned on right side. Assist x 2.
--- NOTE | 2021-02-09 18:32 | NUR ---
Patient repositioned in bed. Sat up for dinner. She reports her dinner was to tough to eat, new meal ordered. Software Integration Developer assist with barrier cream per patient. request. Get to RAUL. Patient heels floated, heel protectors on. Patient continues to have edema throughout her body, most notable in her trunk. Will report off to nightnurse
[2021-02-09 19:12] VITALS: BP 142/52; PULSE 81; TEMP 98.1
--- NOTE | 2021-02-09 19:45 | NUR ---
Patient assessed at this time. Alert and oriented x 4, and able to make needs known. Denies having pain and discomfort at this time. Peripheral INT to right forearm flushed. Given IV Lasix per orders. Denies SOB and dyspnea. LS CTA. Respirations even and unlabored. HRR. Telemetry in place. Capillary refill less than 3 seconds. Non-tenting skin turgor. BSAx4. Abdomen soft and non-tender. Refused Senokot due to loose stools. Generalized edema. 2+ BUE, 3+ BLE, edema to trunk. Indwelling santana catheter patent, and draining clear yellow urine via dependent drainage. Mepilex to coccyx CDI. Excoriation to groin and abisai area. Abisai and catheter care provided. Repositioned in bed. Voices no questions, needs, or concerns at this time. Resting in bed with call light within reach.
[2021-02-10 00:13] VITALS: BP 140/46; PULSE 79; TEMP 97.8
[2021-02-10 05:08] VITALS: BP 130/48; PULSE 83; TEMP 98
--- NOTE | 2021-02-10 05:49 | NUR ---
Patient has been resting in bed. Denies having pain and discomfort. Voices no questions, needs, or concerns at this time. Had 600 mls of urine output this shift.
[2021-02-10 06:49] LABS: CALCIUM 7.9 mg/dL (8.4-10.2); CREATININE, serum 0.91 (0.52-1.25); POTASSIUM 3.6 mmol/L (3.4-5.0)
[2021-02-10 10:47] VITALS: BP 123/58; PULSE 80; TEMP 97.9
--- NOTE | 2021-02-10 13:41 | NUR ---
RA SPO2 81% PLACED BACK ON 1 LPM NC 91%
[2021-02-10 15:32] VITALS: BP 143/51; PULSE 81; TEMP 98.3
--- NOTE | 2021-02-10 19:24 | NUR ---
PATIENT HAD UNEVENTFUL DAY. DOCTOR ORDERED BUMEX AND NITRO PATCH FOR SYSTOLICS IN THE 140'S, DOCTOR STATES IF THIS DOES NOT BRING SYSTOLIC DOWN INTO 110'S. POSSIBLE TRANSFER TO ICU FOR CARDIAC DRIP. PATIENT RESTING IN BED AT THIS TIME. DOES NOT COMPLAIN OF ANY PAIN OR DISCOMFORT. FALL PRECAUTIONS IN PLACE. CALL LIGHT WITHIN REACH. BEDSIDE SHIFT REPORT GIVEN TO JOSIE FOWLER.
[2021-02-10 20:09] VITALS: BP 125/46; PULSE 82; TEMP 98
--- NOTE | 2021-02-10 20:45 | NUR ---
Patient sitting up in bed and reading book upon enter the room. Patient alert and oriented. Denies any pain or discomfort. Patient currently on 1L oxygen via NC. Patient denies SOB or dyspnea. Respiration even and unlabored. No actue respiratory distress noted. Deutsch catheter in place and draining clear yellow urine. Bemetanide drip is running at 5ml/hr via right forearm. Shift assessment completed. All scheduled meds given per JAN. Call light within reach. Patient denies any needs at this time.
[2021-02-11] VITALS (8 sets, daily range): BP systolic 110–144; BP diastolic 44–72; PULSE 79–84; TEMP 97.6–98.4
[2021-02-11 06:17] LABS: CALCIUM 8.4 mg/dL (8.4-10.2); CREATININE, serum 0.87 (0.52-1.25); POTASSIUM 3.3 mmol/L (3.4-5.0)
--- NOTE | 2021-02-11 06:25 | NUR ---
Patient slept well throughout the night. Bumetanide drip running at 5ml/hr continuously. No c/o pain or discomfort. No acute distress noted. Call light within reach. Will give report to day shift nurse.
--- NOTE | 2021-02-11 07:00 | NUR ---
Report received from JOSIE White. PT in bed resting with eyes closded, will continue to monitor.
[2021-02-11 07:30] LABS: BASO % 0.5 % (0.0-2.0); EOS # 0.3 (0.0-0.7); EOS % 4.3 % (0-4.0); GRAN # 3.3 (1.4-6.5); GRAN % 56.4 % (42.2-75.2); LYMPH # 1.7 (1.2-3.4); LYMPH % 28.9 % (20.0-51.0); MEAN CELL VOLUME 102 fl (80.0-100.0); MEAN CORPUSCULAR HGB CONC 32 g/dl (33.0-37.0); MEAN PLATELET VOLUME 10.4 fl (7.4-10.4); MONO # 0.6 (0.1-0.6); MONO % 9.6 % (1.7-9.3); PLATELET COUNT 176 K/mm3 (130-400); RED BLOOD COUNT 2.99 M/mm3 (4.10-5.30); REDCELL DISTRIBUTION WIDTH-CV 17.9 % (11.5-14.5)
[2021-02-11 07:32] LABS: HEMATOCRIT 30.5 % (37.0-47.0); HEMOGLOBIN 9.6 g/dl (12.5-16.0); MEAN CORPUSCULAR HEMOGLOBIN 32 pg (27.0-31.0)
--- NOTE | 2021-02-11 09:30 | NUR ---
Assessment charted. pt lethargic but able to arouse and ate all of breafkast. Deneis pain. JVD very prominant, called Carl KENDALL with [facility] into room and he visualized and confirmed it is the same as it has been. Resting in bed, repositioned for comfort. Heels floated, off bony prominances, turning q2h. Bumex gtt running to RFA. Deutsch draining clear yellow urien to DD in bag at side of bed, will continue bina onitor.
[2021-02-11] MEDS ORDERED: BUMEX 1MG TA1 MG/TA1 PO (10:43)
--- NOTE | 2021-02-11 12:00 | NUR ---
TAKING OVER PATIENT'S CARE. RECEIVED REPORT FROM JOSIE GOLDBERG. PATIENT RESTING COMFORTABLY UP IN BED. STUDENT NURSE WORKING WITH PATIENT TODAY, SEE STUDENT CHARTING. PATIENT DISCHARGE BACK TO [facility] CANCELED DUE TO BUMEX GTT. [facility] WANTS PATIENT OFF GTT FOR 24 HOURS BEFORE THEY WILL TAKE PATIENT BACK. CARDIOLOGY NOTIFIED.
--- NOTE | 2021-02-11 13:58 | NUR ---
Button Machine Operator faxed clinical updates to [facility] as attending physician is ready to discharge patient today. YEIMY spoke with Maeve at [facility] who advised they want patient to be stable off Bumex drip for 24 hours before accepting. YEIMY provided update to [facility] who contacted attending. COVID test ordered for patient for placement. SW contacted patient's daughter, Shaila and left a message.
--- NOTE | 2021-02-11 22:59 | NUR ---
Patient resting in bed with eyes closed enter the room. Patient easily awake with voice. Patient A/Ox4. Patient denies any pain or discomfort. Denies SOB or dyspnea. +2 pitting edema to bilateral lower legs. Elevated both heels on the pillow. All scheduled meds given per JAN. Call light within reach. Patient denies any needs. Will continue to monitor.
[2021-02-12 03:25] VITALS: BP 125/50; PULSE 80; TEMP 97.7
--- NOTE | 2021-02-12 06:25 | NUR ---
Patient had several large incontinent void after receiving Lasix last night. Amanda-area are reddened. Applied Pure-wick around 03:30 am to keep the skin dry and clean. No acute distress noted throughout the night. Call light within reach.
[2021-02-12 06:57] LABS: CALCIUM 8.4 mg/dL (8.4-10.2); CREATININE, serum 0.83 (0.52-1.25); POTASSIUM 3.6 mmol/L (3.4-5.0)
[2021-02-12 08:44] VITALS: BP 141/51; PULSE 74; TEMP 98
[2021-02-12 11:25] VITALS: BP 141/51; PULSE 74; TEMP 98
--- NOTE | 2021-02-12 12:02 | NUR ---
patient left the floor at this time. All belongings were sent with the patient. Patient refused to take the Heart Failure packet provided to her for education stating "I HAVE ONE OF THOSE I AM NOT TAKING THAT WITH ME", despite my encouragement. Packet was sent with the patient. No further questions or concerns
--- NOTE | 2021-02-12 13:15 | NUR ---
Wallpaper Installer faxed clinical updates to Maeve at [facility] who advised they can accept patient back today. YEIMY collaborated with Maeve to set transport time for 1130. YEIMY contacted patient's daughter, Meghan to notify her of transport time. YEIMY faxed negative COVID results and discharge orders to Maeve at [facility]. No additional needs at this time.
== END 2021-02-12 12:04 | DRG 291 ==
LOC: MEDICAL 18:57
PROVIDERS: ADMIT Internal Medicine Interventional Cardiology
DX: I13.0 Hypertensive heart and chronic kidney disease with heart failure and stage 1 through stage 4 chronic kidney disease, or unspecified chronic kidney disease (principal); I50.33 Acute on chronic diastolic (congestive) heart failure; I48.21 Permanent atrial fibrillation; I08.3 Combined rheumatic disorders of mitral, aortic and tricuspid valves; I27.20 Pulmonary hypertension, unspecified; N18.9 Chronic kidney disease, unspecified; E78.5 Hyperlipidemia, unspecified; Z66 Do not resuscitate; Z90.710 Acquired absence of both cervix and uterus; Z79.82 Long term (current) use of aspirin; Z88.1 Allergy status to other antibiotic agents; Z88.2 Allergy status to sulfonamides; Z88.7 Allergy status to serum and vaccine; Z95.0 Presence of cardiac pacemaker; Z20.822 Contact with and (suspected) exposure to COVID-19
CPT/HCPCS: J1160; J1650; J1940